=== PATIENT | male | born 1995 | race Caucasian/White ===

== ENCOUNTER 2016-11-08 11:54 | Emergency (ER) | payer BC ==
[~2016-11-08] VITALS: Ht 180.3 cm; Wt 120.7 kg
[~2016-11-08 11:54] MED LIST: FLUOXETINE HCL20 MG PO; MOTRIN600 MG PO; MOTRIN800 MG PO; ULTRACET1 TABLET PO; ZOFRAN4 MG PO
[2016-11-08 12:34] LABS: HEMATOCRIT 44.9 % (38.0-50.0); MCH 28.4 PG (29.0-34.0); MCV 86.2 FL (86-99); MEAN PLAT.VOLUME 9.7 uM^3 (9.0-12.4); PLATELET COUNT 342 K/uL (156-360); RBC DIS.WIDTH-CV 12.8 % (11.8-14.6); RED BLOOD COUNT 5.21 M/uL (4.00-5.50); WHITE BLOOD COUNT 9.7 K/uL (4.1-10.2)
[2016-11-08 12:44] LABS: CHLORIDE 105 mEq/L (99-109); POTASSIUM 4.2 mEq/L (3.7-5.4); SODIUM 140 mEq/L (136-147)
[2016-11-08 12:45] LABS: GLUCOSE 89 mg/dL (70-99)
[2016-11-08 12:47] LABS: ANION GAP 14 MEQ/L (2-14)
[2016-11-08 12:49] LABS: GFR ESTIMATE (CALCULATED) > 59 mL/min/
[2016-11-08 12:50] LABS: UREA NITROGEN (BUN) 10 mg/dL (9-23)
[2016-11-08 13:33] LABS: ADD MIUA? NO; BILIRUBIN NEGATIVE; BLOOD NEGATIVE; COLOR YELLOW ((YELLOW)); GLUCOSE (STRIP) NEGATIVE; KETONES NEGATIVE; LEUKOCYTES NEGATIVE; NITRITE NEGATIVE; PROTEIN (STRIP) NEGATIVE; SPECIFIC GRAVITY 1.017 (1.000-1.030); UROBILINOGEN 0.2 MG/DL (0.2-1.0)
[2016-11-08 13:57] LABS: UCUL ADDED? NO
[2016-11-08] MEDS ORDERED: SKELAXIN800 MG PO (14:16)
[2016-11-08] MEDS ORDERED: NAPROSYN500 MG PO (14:16)
[2016-11-08 14:28] VITALS: BP 120/79
== END 2016-11-08 14:29 | disposition home or self-care (01) ==
LOC: RME 11:54 → EME 11:54 → RME 14:29
DX: R07.81 Pleurodynia (principal)
CPT/HCPCS: 80048; 81003; 85027; 99281; 99284